=== PATIENT | female | born 1995 | race Caucasian/White ===

== ENCOUNTER → 2016-07-28 | Outpatient (REF) ==
[~2016-07-28] MED LIST: AMOXICILLIN 50500 MG PO; NORCO 325 MG-51 TAB PO; PREDNISONE10 MG PO
== END ==
LOC: COL.EMP 12:42
DX: Z02.1 Encounter for pre-employment examination (principal)

== ENCOUNTER → 2017-01-21 | Outpatient (REF) | LOC: WSOH 09:45 | DX: Z02.89 Encounter for other administrative examinations (principal) ==

== ENCOUNTER → 2017-03-16 | Outpatient (REF) | LOC: WSOH 17:15 | DX: Z02.89 Encounter for other administrative examinations (principal) ==